=== PATIENT | male | born 1940 | race Caucasian/White ===

== ENCOUNTER → 2022-06-15 | Outpatient (CLI) | payer MEDICARE ==
--- NOTE | 2022-06-17 10:01 | MR ---
EXAMINATION TYPE: MR Prostate wo/w con DATE OF EXAM: 06/15/2022 COMPARISON: None. INDICATION: Elevated PSA levels. PSA: 8.9 ng/ml on May 07, 2022 Recent Biopsy and Date: None. Pathology Report (If Applicable): n/a TECHNIQUE: Examination was performed using a 3T MRI without an endorectal coil. Multiparametric imaging was perf ormed with T2 mutliplanar sequences, axial diffusion weighted imaging and dynamic contrast enhanced i maging, utilizing 9.5 mL intravenous Gadavist gadolinium contrast. FINDINGS: Slightly enlarged prostate gland. PROSTATE VOLUME: 4.2 cm SI x 3.1 cm AP x 5.7 cm LR Vol= 38.9 cc PSA DENSITY: 0.23 ng/ml/cc There is area of mild to moderate diminished signal on ADC mapping that is isodense on diffusion-weig hted imaging involving the left apex. Diminished T2 signal at this level is seen. There is postcontra st enhancement with generally increased and plateau-type enhancement on dynamic imaging. The area of involvement roughly 1.1 cm transversely. PI-RADS 4 lesion. There is overall heterogeneity in the central aspect with area of heterogeneous diminished T2 signal measuring 1.2 cm in the anterior left aspect towards the base axial image 19 showing increased signal on diffusion-weighted imaging and heterogeneous postcontrast enhancement. PI-RADS 4 lesion. IMPRESSION: Slightly enlarged prostate with 2 areas of concern noted. Highest Assessment Category: 4 MRI Stage: T0 N0 M0 based on review of pelvic images. False negative rates for MRI range from 5-20% depending on risk profile. Recommendation: Targeted sampling of 2 areas of concern noted above and random sampling to further ev aluate. Assessment Categories: 1 ? Very low (clinically significant cancer is highly unlikely to be present) 2 ? Low (clinically significant cancer is unlikely to be present) 3 ? Intermediate (the presence of clinically significant cancer is equivocal) 4 ? High (clinically significant cancer is likely to be present) 5 ? Very high (clinically significant cancer is highly likely to be present)
== END | disposition home or self-care (01) ==
LOC: RADMRIMAIN 08:02
PROVIDERS: ATTEND Urology
DX: N40.0 Benign prostatic hyperplasia without lower urinary tract symptoms (principal); R97.20 Elevated prostate specific antigen [PSA]
CPT/HCPCS: 72197; A9585

== ENCOUNTER → 2022-10-15 | Outpatient (CLI) | payer MEDICARE ==
[2022-10-15 15:08] LABS: Basophils # (A) 0.03 X 10*3/uL (0.00-0.10); Basophils % (A) 0.5 %; Eosinophils # (A) 0.12 X 10*3/uL (0.04-0.35); Eosinophils % (A) 2.2 %; HCT 45.2 % (39.6-50.0); HGB 14.4 g/dL (13.0-17.0); Immature Grans, Automated 0.2 %; Lymphocytes # (A) 1.36 X 10*3/uL (0.90-5.00); Lymphocytes % (A) 24.6 %; MCH 30.4 pg (27.0-32.0); MCHC 31.9 g/dL (32.0-37.0); MCV 95.6 fL (80.0-97.0); Mean Platelet Volume 9.6 fL (9.5-12.2); Monocytes # (A) 0.37 X 10*3/uL (0.20-1.00); Monocytes % (A) 6.7 %; NRBC Per 100 WBC 0 /100 WBCS (0.0-0.0); Neutrophils # (A) 3.64 X 10*3/uL (1.80-7.70); Neutrophils % (A) 65.8 %; Platelet Count 189 X 10*3/uL (140-440); RBC 4.73 X 10*6/uL (4.40-5.60); RDW 13.1 % (11.5-14.5); WBC 5.53 X 10*3/uL (4.50-10.00)
[2022-10-15 20:46] LABS: African American GFR (CKD) 93.4 (60.0-200.0); Anion Gap 11.8 mmol/L (10.00-18.00); BUN/Creat Ratio 19.11 Ratio (12.00-20.00); Blood Urea Nitrogen 17.1 mg/dL (9.0-27.0); Calcium 9.4 mg/dL (8.7-10.3); Carbon Dioxide 25.4 mmol/L (20.0-27.5); Non-African American GFR(CKD) 80.6 (60.0-200.0); Potassium 4.4 mmol/L (3.5-5.5)
== END | disposition home or self-care (01) ==
LOC: LABWHC1 10:49
PROVIDERS: ATTEND Urology
DX: Z01.818 Encounter for other preprocedural examination (principal); I45.10 Unspecified right bundle-branch block; C61 Malignant neoplasm of prostate; R94.31 Abnormal electrocardiogram [ECG] [EKG]
CPT/HCPCS: 36415; 80048; 85025; 93005

== ENCOUNTER 2022-10-24 09:58 | Day surgery (SDC) | payer MEDICARE ==
--- NOTE | 2022-10-23 22:26 | P.GSHP ---
History of Present Illness H&P Date: 10/23/22 Chief Complaint: Prostate cancer The patient is an 82-year-old white male found to have a PSA level of 8.05 in November 2021, up from 5.6 in November 2020. He has no family history of prostate cancer. A repeat PSA level in April 2022 was 8.9. MRI of the prostate showed a prostate volume of 39 mL, with two PI-RADS 4 lesions, both on the left side. He underwent MRI fusion biopsy, which revealed [place] 6/7 adenocarcinoma in 9 of 14 biopsies. He is felt to be a poor candidate for active surveillance, so the pros and cons of radiation therapy versus surgery were reviewed with he and his in detail. He has elected to undergo a robotic-assisted laparoscopic prostatectomy (RALP) with bilateral pelvic lymphadenectomy. - Genitourinary (Male) Genitourinary: Reports erectile dysfunction Past Medical History Past Medical History: Cancer, Hearing Disorder / Deafness Additional Past Medical History / Comment(s): new dx. prostate cancer History of Any Multi-Drug Resistant Organisms: None Reported Past Surgical History: Cholecystectomy, Tonsillectomy Past Anesthesia/Blood Transfusion Reactions: No Reported Reaction Smoking Status: Former smoker - Past Family History Mother Family Medical History: No Reported History Father Family Medical History: Cancer Brother(s) Family Medical History: Cancer Medications and Allergies Home Medications Medication Instructions Recorded Confirmed Type Ascorbic Acid [Vitamin C] 1,000 mg PO DAILY 07/26/22 10/22/22 History Cholecalciferol [Vitamin D3 (10 10 mcg PO DAILY 07/26/22 10/22/22 History Mcg = 400 Iu)] Fish Oil/Dha/Epa [Fish Oil 1,200 1,200 mg PO DAILY 07/26/22 10/22/22 History mg Fish Oil] L.acidoph,Paracasei, B.lactis 1 each PO DAILY 07/26/22 10/22/22 History [Probiotic] Multivitamin [Multivitamins Adult 1 each PO DAILY 07/26/22 10/22/22 History Gummies] Allergies Allergy/AdvReac Type Severity Reaction Status Date / Time No Known Allergies Allergy Verified 10/22/22 09:07 Surgical - Exam - General well developed, well nourished, no distress - Respiratory normal respiratory effort - Abdomen Abdomen: soft, non tender, no guarding, no rigid, no rebound - Genitourinary normal penis with no external lesions, testicles non-tender - Rectum Rectum: normal sphincter tone, no masses, other (Prostate mildly enlarged and smooth) - Psychiatric oriented to time, oriented to person, oriented to place, speech is normal, memory intact Assessment and Plan (1) Malignant neoplasm of prostate Status: Acute Code(s): C61 - MALIGNANT NEOPLASM OF PROSTATE SNOMED Code(s): 174926657 Plan: Robotic-assisted laparoscopic prostatectomy (RALP) with bilateral pelvic lymphadenectomy. The procedure has been reviewed in detail with the patient and his . They've been made aware of potential risks, which include anesthesia, bleeding, infection, neurologic injury, bowel injury, urinary leak, lymphocele, and vesical neck contracture. The possibility of post-prostatectomy incontinence has been discussed in detail. He is aware of the possible need for adjuvant therapy.
[~2022-10-24 09:58] MED LIST: HEPARIN SODIUM,PORCINE/PF 5,000 UNIT/0.5 ML SYRINGE SQ PRN
[2022-10-24] MEDS ORDERED: ONDANSETRON 4 MG/2 ML VIAL IVP ONE (10:18)
[2022-10-24] MEDS ORDERED: DEXAMETHASONE SOD PHOSPHATE 4 MG/ML 1 ML VIAL IV ONE (10:18)
[2022-10-24] MEDS ORDERED: fentaNYL (PF) 50 MCG/ML 2 ML AMP IV PRN (10:18)
[2022-10-24] MEDS ORDERED: LACTATED RINGERS 1,000 ML IV SCH ×2 (10:18)
[2022-10-24] MEDS ORDERED: MIDAZOLAM 2 MG/2 ML VIAL IVP ONE (10:57)
[2022-10-24] MEDS ORDERED: fentaNYL (PF) 50 MCG/1 ML VIAL IVP ONE (10:58)
--- NOTE | 2022-10-24 11:26 | P.ANPRN ---
Procedure Note - Anesthesia - Nerve Block Performed Bilateral Erector Spinae Single Time Out Performed: Yes (1057) Date of Procedure: 10/24/22 Procedure Start Time: 10:58 Procedure Stop Time: 11:03 Location of Patient: PreOp Indication: Acute Post-Operative Pain, Requested by Surgeon Specifically requested for management of pain by DrSarwat: Tejas Guerin Sedation Type: Sedate with meaningful contact maintained Preparation: Sterile Prep Position: Prone Catheter: None Needle Types: Pajunk Needle Gauge: 21 Ultrasound used to visualize needle placement: Yes Ultrasound used to observe medication spread: Yes Injectate: 0.5% Ropivacaine (see comment for volume) (15cc +15cc nacl pf each side) Blood Aspirated: No Pain Paresthesia on Injection Noted: No Resistance on Injection: Normal Image Stored and Saved: Yes Events: Uneventful and Well Tolerated
[2022-10-24] MEDS ORDERED: PROPOFOL 10 MG/ML 20 ML VIAL IV ONE (12:32)
[2022-10-24] MEDS ORDERED: NEOSTIGMINE 1 MG/ML 10 ML VIAL ONE (12:32)
[2022-10-24] MEDS ORDERED: SUCCINYLCHOLINE CHLORIDE 200 MG/10 ML VIAL IV ONE (12:32)
[2022-10-24] MEDS ORDERED: GLYCOPYRROLATE 0.2 MG/ML 2 ML VIAL ONE (12:32)
[2022-10-24] MEDS ORDERED: HYDROmorphone (PF) 1 MG/ML ONE (12:32)
[2022-10-24] MEDS ORDERED: fentaNYL (PF) 50 MCG/ML 2 ML AMP ONE (12:32)
[2022-10-24] MEDS ORDERED: ROCURONIUM 10 MG/ML (5 ML VIAL) IV ONE (12:32)
[2022-10-24] MEDS ORDERED: SODIUM CHLORIDE 0.9% (PF) 10 ML VIAL ONE (12:32)
[2022-10-24] MEDS ORDERED: ROPIVACAINE 5 MG/ML 30 ML VIAL ONE (12:32)
[2022-10-24] MEDS ORDERED: LIDOCAINE 2% INJ 20 MG/ML (2 ML VIAL) ONE (12:32)
[2022-10-24] MEDS ORDERED: BUPIVACAINE (PF) 0.25% 30 ML VIAL SQ ONE ×3 (13:22→17:40)
[2022-10-24] MEDS ORDERED: HYDROmorphone 1 MG/ML 1 ML SYRINGE IVP PRN (17:46)
[2022-10-24] MEDS ORDERED: ZOLPIDEM 5 MG TAB PO PRN (17:46)
[2022-10-24] MEDS ORDERED: HYDROcodone/APAP 5-325MG 1 EACH TAB PO PRN (17:46)
[2022-10-24] MEDS ORDERED: ACETAMINOPHEN TAB 325 MG TAB PO PRN (17:46)
--- NOTE | 2022-10-24 17:46 | P.OP ---
Date of Procedure: 10/24/22 Preoperative Diagnosis: Adenocarcinoma the prostate Postoperative Diagnosis: Same Procedure(s) Performed: Robotic-assisted laparoscopic prostatectomy (RALP) with bilateral pelvic lymphadenectomy Anesthesia: INGRID Surgeon: Tejas Guerin Estimated Blood Loss (ml): 150 IV fluids (ml): 1,000 Pathology: other (Prostate, seminal vesicles, bilateral pelvic lymph nodes) Condition: stable Disposition: PACU Indications for Procedure: The patient is an 82-year-old white male found to have a PSA level of 8.05 in November 2021, up from 5.6 in November 2020. He has no family history of prostate cancer. A repeat PSA level in April 2022 was 8.9. MRI of the prostate s howed a prostate volume of 39 mL, with two PI-RADS 4 lesions, both on the left side. He underwent MRI fusion biopsy, which revealed [place] 6/7 adenocarcinoma in 9 of 14 biopsies. He is felt to be a poor candidate for active surveillance, so the pros and cons of radiation therapy versus surgery were reviewed with he and his in detail. He has elected to undergo a robotic-assisted laparoscop ic prostatectomy (RALP) with bilateral pelvic lymphadenectomy. Operative Findings: No evidence of extraprostatic disease. Description of Procedure: The patient was taken in the operating room and placed in the supine position. He was carefully positioned on a beanbag for stability. The abdomen and external genitalia were prepped and draped sterilely. A Jean Baptiste catheter was inserted. The Veress needle was passed through the anterior abdominal wall immediately cephalad to the umbilicus, and insufflation was performed to a pressure of 20 mm Hg. Once insufflation was performed, the Veress needle was removed and a supraumbilical incision was made, through which an 8 mm camera port was placed. Under camera guidance, 3 8 mm robotic ports were placed, 2 on the left and one on the right. A 12 mm port was placed on the right lateral side for use as an front end assistant port. A 5 mm port was placed to the right of the camera port for suction. The patient was placed in Trendelenburg position, and docking was then performed to the [employer] system utilizing a 4-arm approach. The abdomen was examined. The sigmoid colon was mobilized out of the pelvis. Small bowel adhesions within the pelvis were also lysed to mobilize the small bowel. The peritoneum was incised lateral to the medial umbilical ligaments bilaterally, exposing the pubis. The peritoneum was then incised across the midline, allowing the bladder flap to be taken down. The endopelvic fascia was opened bilaterally, and muscular attachments from the urogenital diaphragm were swept away from the prostate. Bilateral pelvic lymphadenectomies were performed in the standard fashion. The peritoneal incisions were extended in a cephalad direction, and the vas deferens were divided bilaterally. Margins of dissection were the bifurcation of the iliac vessels proximally, the circumflex iliac vein distally, the external iliac artery laterally, and the obturator nerve medially. A combination of sharp and blunt dissection was used. Care was taken to avoid any neurovascular injury, and the use of monopolar electrocautery was avoided immediately adjacent to neurovascular structures. The lymphatic package was clipped distally. No enlarged lymph nodes were encountered. There were no complications. The vesical neck was incised transversely, down to the lumen. The Jean Baptiste catheter was brought out through the anterior vesical neck incision and was used for traction. The posterior aspect of the vesical neck was incised, such that the full-thickness of the vesical neck was divided. The anterior layer of the Denonvilliers fascia was incised, exposing the vas deferens. Each were isolated and divided. Next, each of the seminal vesicles were dissected away from adjacent tissues, and vascular attachments were cauterized and divided. The posterior leaf of Denonvilliers fascia was incised transversely, allowing entry into the plane between the prostate and rectum. With lateral spreading, this plane was developed down to the apex. This exposed the lateral vascular pedicles bilaterally. These were clipped and divided in an antegrade fashion, down to the apex. The neurovascular bundles were not preserved. The remaining apical attachments were swept away from the prostate. The dorsal venous complex was incised, as well as periurethral tissue. At this point, only the urethra remained intact. This was transected immediately distal to the prostatic apex using cold scissors. The specimen was placed within a specimen bag. The dorsal venous complex was sutured using a V-Loc suture in a running fashion. A second V-Loc suture was then used to place the Duc stitch, incorporating the rhabdosphincter and the edge of Denonvilliers fascia. This allowed the bladder to be taken down to the urethra, leaving the vesical neck immediately adjacent to the urethra. The vesicourethral anastomosis was then performed using a V-Loc suture in a running fashion. After completing the anastomosis, an 18-[place] Jean Baptiste catheter was placed and approximately 150 mL of 0.9 normal saline were instilled into the bladder. No extravasation of irrigant from the vesicourethral anastomosis was noted. A small amount of oozing was noted from the left lateral vascular pedicle, so Surgicel was placed over this. Tisseel was sprayed into the pelvis over the vascular pedicles, dorsal vein, and vesicourethral anastomosis. The patient was returned to the supine position. Undocking was performed, and the specimen bag sutures were passed through the camera port. After removing all the ports and allowing all of the CO2 to be released from the peritoneal cavity, the camera port incision was enlarged to allow removal of the surgical specimen. The fascia of this incision was then closed using 0 PDS suture in a running fashion. Each of the skin incisions were then closed using 4-0 Monocryl suture in a subcuticular fashion. Marcaine was injected at each of the incision sites. Dermabond was applied to each incision. The Jean Baptiste catheter was connected to gravity drainage. All sponge and needle counts were correct. The patient tolerated the procedure well was taken to the recovery room in stable condition.
[2022-10-24] MEDS ORDERED: ONDANSETRON 4 MG/2 ML VIAL IVP PRN (19:33)
[2022-10-24] MEDS: KETOROLAC 15 MG/ML 1 ML VIAL IVP SCH ×2 (19:39→23:54)
[2022-10-24] MEDS ORDERED: HEPARIN SODIUM,PORCINE/PF 5,000 UNIT/0.5 ML SYRINGE SQ SCH (21:00)
[2022-10-24] MEDS: DEXTROSE 5%-0.45% NACL 1,000 ML IV SCH (21:29)
[2022-10-24] MEDS: HEPARIN SODIUM,PORCINE/PF 5,000 UNIT/0.5 ML SYRINGE SQ SCH (23:53)
[2022-10-25] MEDS: KETOROLAC 15 MG/ML 1 ML VIAL IVP SCH ×2 (05:57→12:10)
[2022-10-25] MEDS: DEXTROSE 5%-0.45% NACL 1,000 ML IV SCH ×2 (06:00→08:16)
[2022-10-25] MEDS: HEPARIN SODIUM,PORCINE/PF 5,000 UNIT/0.5 ML SYRINGE SQ SCH (08:18)
[2022-10-25 08:31] VITALS: BP 116/61; PULSE 74; RESP 16; TEMP 98.2
--- NOTE | 2022-10-25 17:42 | P.DS ---
Providers Expected date of discharge: 10/25/22 Attending physician: Tejas Guerin Primary care physician: Alexys Ruiz - Discharge Diagnosis(es) (1) Malignant neoplasm of prostate Status: Acute Hospital Course: On the day of admission, the patient underwent an uncomplicated robotic-assisted laparoscopic prostatectomy and bilateral pelvic lymphadenectomy. The perioperative course was unremarkable. The patient remained afebrile with stable vital signs. On the first postoperative day, he tolerated breakfast and denied nausea. He also denied chest pain and dyspnea. The incisions were clean, dry, and intact. There was no penoscrotal edema. The Jean Baptiste catheter was draining clear yellow urine. Procedures: Robotic-assisted laparoscopic prostatectomy (RALP) with bilateral pelvic lymphadenectomy on 10/24/2022 Patient Condition at Discharge: Good Plan - Discharge Summary Discharge Rx Participant: Yes New Discharge Prescriptions: New Ketorolac [Toradol] 10 mg PO Q6HR PRN #10 tab PRN Reason: Pain Ciprofloxacin HCl [Cipro] 250 mg PO Q12HR 3 Days #6 tab No Action Cholecalciferol [Vitamin D3 (10 Mcg = 400 Iu)] 10 mcg PO DAILY Multivitamin [Multivitamins Adult Gummies] 1 each PO DAILY Fish Oil/Dha/Epa [Fish Oil 1,200 mg Fish Oil] 1,200 mg PO DAILY L.acidoph,Paracasei, B.lactis [Probiotic] 1 each PO DAILY Ascorbic Acid [Vitamin C] 1,000 mg PO DAILY Discharge Medication List Ascorbic Acid [Vitamin C] 1,000 mg PO DAILY 07/26/22 [History] Cholecalciferol [Vitamin D3 (10 Mcg = 400 Iu)] 10 mcg PO DAILY 07/26/22 [History] Fish Oil/Dha/Epa [Fish Oil 1,200 mg Fish Oil] 1,200 mg PO DAILY 07/26/22 [History] L.acidoph,Paracasei, B.lactis [Probiotic] 1 each PO DAILY 07/26/22 [History] Multivitamin [Multivitamins Adult Gummies] 1 each PO DAILY 07/26/22 [History] Ciprofloxacin HCl [Cipro] 250 mg PO Q12HR 3 Days #6 tab 10/25/22 [Rx] Ketorolac [Toradol] 10 mg PO Q6HR PRN #10 tab 10/25/22 [Rx] Follow up Appointment(s)/Referral(s): Tejas Guerin MD [STAFF PHYSICIAN] - 11/05/22 10:20 am Patient Instructions/Handouts: Jean Baptiste Catheter Placement and Care (DC), Robot Assisted Laparoscopic Prostatectomy (DC) Activity/Diet/Wound Care/Special Instructions: Discharge home with Jean Baptiste catheter. Instruct patient to use overnight drainage bag as well as urinary leg bag. Okay to shower. Diet as tolerated. No lifting, driving, or strenuous activity. Reassure patient that abdominal wall ecchymosis and penoscrotal swelling are normal. Instruct patient to begin taking antibiotics one day prior to Jean Baptiste catheter removal. Discharge Disposition: HOME SELF-CARE
== END 2022-10-25 13:50 | disposition home or self-care (01) ==
LOC: OR 09:58 → 4SSUR 17:40 → OR 10-25 13:50
PROVIDERS: ATTEND Urology
DX: C61 Malignant neoplasm of prostate (principal); G89.18 Other acute postprocedural pain; Z90.49 Acquired absence of other specified parts of digestive tract; Z87.891 Personal history of nicotine dependence; Z80.8 Family history of malignant neoplasm of other organs or systems; Z79.899 Other long term (current) drug therapy; Z90.89 Acquired absence of other organs
CPT/HCPCS: 38571; 64999; 86900; 86901; 86850; 88307; 88309; 55866; J2250; J0330; J1100; J2710; J2405; J0690 ×2; J3010 ×2; J1170; J2795; J1885 ×2; J2704; J1644 ×2; J2001

== ENCOUNTER → 2023-11-26 | Outpatient (CLI) | payer MEDICARE | END | disposition home or self-care (01) | LOC: LABWHC1 12:18 | PROVIDERS: ATTEND Urology | DX: C61 Malignant neoplasm of prostate (principal) | CPT/HCPCS: 36415; 84153 ==